=== PATIENT | male | born 1950 | race Caucasian/White ===

== ENCOUNTER 2020-02-17 09:36 | Outpatient (REF) | payer OTHER, MEDICARE, SELFPAY | END 2020-02-17 09:37 | disposition home or self-care (01) | LOC: HO.LAB 09:36 | PROVIDERS: Visit Provider Internal Medicine | DX: Z20.828 Contact with and (suspected) exposure to other viral communicable diseases (principal) | CPT/HCPCS: C9803; U0003 ==

== ENCOUNTER 2020-05-04 13:00 | Outpatient (REF) | payer MEDICARE, SELFPAY | END 2020-05-04 13:01 | disposition home or self-care (01) | LOC: HO.LAB 13:00 | PROVIDERS: Visit Provider Internal Medicine | DX: Z20.822 Contact with and (suspected) exposure to COVID-19 (principal) | CPT/HCPCS: 36415; C9803; U0003; U0005 ==

== ENCOUNTER 2020-07-09 19:23 | Emergency (ER) | payer MEDICARE, SELFPAY ==
--- NOTE | ~2020-07-09 | CT_ITS ---
EXAMINATION: CT HEAD WITHOUT CONTRAST CLINICAL INFORMATION: Fall, EtOH COMPARISON: None TECHNIQUE: Contiguous axial imaging was performed from the skull base to vertex without intravenous administration of contrast. This CT examination was performed using dose optimization techniques as appropriate, variously including the following: *Automated exposure control *Adjustment of mA and/or kV according to patient size (this includes techniques or standardized protocols for targeted exams where dose is matched to indication/reason for exam; i.e. extremities or head) *Use of iterative reconstruction technique DLP: 792 mGy-cm FINDINGS: There is no evidence of acute intracranial hemorrhage or territorial infarction. No abnormal mass effect or midline shift is seen. Silva to white matter differentiation is well preserved. No extra-axial fluid collections are identified. The ventricles are normal in size. There is no abnormal attenuation within the brain parenchyma. The osseous structures and soft tissues are normal. The mastoid air cells and visualized portions of the paranasal sinuses are well aerated. CT/CT head/brain wo con IMPRESSION: No acute intracranial pathology.
[2020-07-09 19:39] VITALS: BP 132/75; BP 171/71; PULSE 78; PULSE 83; RESP 16; O2SAT 100; O2SAT 95; BMI 30.9
--- NOTE | 2020-07-09 20:09 | ED.FALL ---
HPI - Fall General Chief Complaint: Fall Stated Complaint: fall etoh Time Seen by Provider: 07/09/20 20:08 Source: patient Mode of arrival: ambulatory Limitations: no limitations History of Present Illness HPI Narrative: Patient comes emergency room by EMS. Seems that patient was walking outside and fell into a fire back. Patient did not lose consciousness, patient has a small abrasion to the forehead. Patient admits to drink alcohol. Patient denies headache, neck pain Related Data Allergies Allergy/AdvReac Type Severity Reaction Status Date / Time Bee stings Allergy Unknown Uncoded 04/12/11 00:00 Dust Allergy Unknown Uncoded 04/12/11 00:00 Morphine Sulfate Allergy Unknown Uncoded 04/12/11 00:00 Own sweat Allergy Unknown Uncoded 04/12/11 00:00 Review of Systems Review of Systems: Constitutional : No Weight loss, No Fever, No Chills, No Night Sweats, No Fatigue, No Malaise ENT/Mouth : No Hearing loss, No Ear Pain, No Nasal Congestion, No Sinus Pain, No Hoarseness, No sore throat, No Rhinorrhea, No Swallowing Difficulty Eyes: No Eye Pain, No Swelling, No Redness, No Foreign Body, No Discharge, No Vision Changes Cardiovascular : No Chest Pain, No SOB, No Dyspnea on Exertion, No Orthopnea, No Edema, No Palpitations Respiratory : No Cough, No Sputum, No Wheezing, No Smoke Exposure, No Dyspnea Gastrointestinal : No Nausea, No Vomiting, No Diarrhea, No Constipation, No abdominal Pain, No Hematochezia, No Melena Genitourinary : no irregular bleeding, No Dysuria, No Urinary Frequency, No Hematuria, No Urinary Incontinence, No Urgency, No Flank Pain, No Urinary Flow Changes, No Hesitancy Musculoskeletal : No joint pain, No Myalgias, No Joint Swelling Skin : Skin abrasion to forehead Neuro : No Weakness, No Numbness, No Paresthesias, No Loss of Consciousness, No Dizziness, No Headache Psych : No Anxiety/Panic, No Depression, No SI/HI/AH/VH, No Social Issues, Heme/Lymph: No Bruising, No Bleeding,No Lymphadenopathy Endocrine : No Polyuria, No Polydipsia, No Temperature Intolerance PMFSH Past Medical History Medical History Alcohol abuse Social History Social History Advance Directives: No Advance Directives Information Provided: No Physical Exam Vital Signs: Vital Signs: Last Vital Signs Pulse 83 07/09/20 19:39 Resp 16 07/09/20 19:39 BP 132/75 07/09/20 19:39 Pulse Ox 95 07/09/20 19:39 Body Mass Index 30.9 Appearance: Alert. Oriented X3. Intoxicated, calm, cooperative Eyes: Pupils equal, round and reactive to light. ENT: Pharynx normal. Neck: Normal inspection. Neck supple. No lymph nodes noted. No crepitus CVS: Normal heart rate and rhythm. Pulses normal. Normal S1 and S2 Respiratory: No respiratory distress. Breath sounds normal. No Wheezing. No rales Abdomen: Soft and nontender. No rigidity. No distention. good BS x4 Skin: Skin warm and dry. Normal skin color. Normal skin turgor. Extremities: No lower extremity edema. No lower extremity edema. No Lacerations. No Rash Neuro: Oriented X 3. No motor deficit. No sensory deficit. Moving all extermities. No slurred speech. Course Course Course Narrative: Head CT within normal limits. Patient is alert, walking steadily, patient's at bedside, patient is being discharged. MDM - Fall Imaging Data Head CT: Radiologist's impression: Please follow-up with your primary care physician tomorrow. If you have any worsening or new symptoms, please return to the emergency room or call 911 Discharge Plan Discharge Clinical Impression: Alcohol abuse, Fall, Abrasion Patient Disposition: Home, Self-Care Instructions: Abuse of Alcohol (ED), Abrasion (ED) Additional Instructions: Please follow-up with your primary care physician tomorrow. If you have any worsening or new symptoms, please return to the emergency room or call 911
--- NOTE | 2020-07-09 20:52 | PC.NURSE ---
PT GETTING ANXIOUS TO LEAVE AND TRYING TO WALK OUT. AT BEDSIDE. PT ALERT AND WALKING WITH STEADY EVEN GAIT. PT AWAITING FOR PENDING CT RESULTS.
== END 2020-07-09 21:33 | disposition home or self-care (01) ==
PROVIDERS: Emergency Provider Emergency Medicine
DX: S00.81XA Abrasion of other part of head, initial encounter (principal); G44.309 Post-traumatic headache, unspecified, not intractable; F10.129 Alcohol abuse with intoxication, unspecified; Y90.8 Blood alcohol level of 240 mg/100 ml or more; W01.0XXA Fall on same level from slipping, tripping and stumbling without subsequent striking against object, initial encounter; Y93.9 Activity, unspecified; Y92.9 Unspecified place or not applicable; Y99.9 Unspecified external cause status
CPT/HCPCS: 70450; 99283

== ENCOUNTER 2020-12-11 08:16 | Emergency (ER) | payer MEDICARE, SELFPAY ==
[2020-12-11 08:18] VITALS: BP 149/80; PULSE 100; RESP 16; TEMP 36.7; O2SAT 99; BMI 24.3
--- NOTE | 2020-12-11 09:11 | ED.GENADULT ---
HPI - General Adult General Chief complaint: Skin/Abscess/Foreign Body Stated complaint: rash Time Seen by Provider: 12/11/20 09:10 Source: patient Mode of arrival: ambulatory Limitations: no limitations History of Present Illness HPI narrative: 70-year-old male is here today for complaints of rash. Patient reports that he was working in the [place] about a week ago and started having rash on his right arm spread to his chest and his bilateral lower legs. Patient was trying to use calamine lotion to dry the area, special skin wash. Patient reports that he has a history of topical dermatitis and seeing medication technician in the past for that. Patient reports that the area is it she starts with small raised red rash, no drainage no pain associated with that no tingling. Patient reports that he has not taken anything for it. Onset (ago): day(s) Location: chest, abdomen, right, upper extremity and lower extremity Radiation: non-radiation Severity: mild Related Data Previous Rx's Medication Instructions Recorded cephalexin 500 mg capsule 500 mg PO QID 5 Days #20 cap 12/11/20 diphenhydramine HCl 25 mg capsule 25 mg PO BEDTIME PRN #20 cap 12/11/20 (Benadryl) hydrocortisone 1 % topical cream 1 appl TOPICAL TID PRN #28.35 g 12/11/20 loratadine 10 mg tablet (Claritin) 10 mg PO DAILY PRN #10 tab 12/11/20 prednisone 20 mg tablet 40 mg PO DAILY 5 Days #10 tab 12/11/20 Allergies Allergy/AdvReac Type Severity Reaction Status Date / Time Bee stings Allergy Unknown Uncoded 04/12/11 00:00 Dust Allergy Unknown Uncoded 04/12/11 00:00 Morphine Sulfate Allergy Unknown Uncoded 04/12/11 00:00 Own sweat Allergy Unknown Uncoded 04/12/11 00:00 Review of Systems Review of Systems: Constitutional : No Weight loss, No Fever, No Chills, No Night Sweats, No Fatigue, No Malaise ENT/Mouth : No Hearing loss, No Ear Pain, No Nasal Congestion, No Sinus Pain, No Hoarseness, No sore throat, No Rhinorrhea, No Swallowing Difficulty Eyes: No Eye Pain, No Swelling, No Redness, No Foreign Body, No Discharge, No Vision Changes Cardiovascular : No Chest Pain, No SOB, No Dyspnea on Exertion, No Orthopnea, No Edema, No Palpitations Respiratory : No Cough, No Sputum, No Wheezing, No Smoke Exposure, No Dyspnea Gastrointestinal : No Nausea, No Vomiting, No Diarrhea, No Constipation, No abdominal Pain, No Hematochezia, No Melena Genitourinary : no irregular bleeding, No Dysuria, No Urinary Frequency, No Hematuria, No Urinary Incontinence, No Urgency, No Flank Pain, No Urinary Flow Changes, No Hesitancy Musculoskeletal : No joint pain, No Myalgias, No Joint Swelling Skin : No Skin Lesions, rash on right forearm, abdomen and legs Neuro : No Weakness, No Numbness, No Paresthesias, No Loss of Consciousness, No Dizziness, No Headache Yes all other systems are reviewed and are negative PMFSH Past Medical History Medical History Alcohol abuse Social History Social History Advance Directives: No Physical Exam Vital Signs: Vital Signs: Last Vital Signs Temp 98.0 F 12/11/20 08:18 Pulse 100 12/11/20 08:18 Resp 16 12/11/20 08:18 BP 149/80 H 12/11/20 08:18 Pulse Ox 99 12/11/20 08:18 Body Mass Index 24.3 Const: General: healthy appearing, no acute distress and well developed Nutritional Appearance: well nourished Orientation/consciousness: patient oriented x3 HENMT: Head: Yes normal to inspection, Yes normocephalic and Yes atraumatic Neck: Neck: Yes normal visual inspection, Yes full ROM and Yes trachea midline Thyroid: Thyroid normal Resp: Effort & Inspection: normal respiratory effort and able to speak in complete sentences Auscultation: clear to auscultation bilaterally Cardio: Rate: regular rate Rhythm: regular rhythm GI: Inspection: Yes normal to inspection Palpation (GI): No hepatosplenomegaly present Auscultation: normal bowel sounds Skin: Other: General skin exam: elasticity normal, turgor normal and dry skin Neuro: General: patient oriented x3 Course Course Course Narrative: Rash to right arm abdomen and bilateral lower extremities. There is no pain associated with that, most likely poison allison or poison Soma. Patient was using, might lotion, scratch the area on his right arm. Will give him prednisone for 5 days, antibiotic, Claritin and Benadryl to take home. We will also give him hydrocortisone 1% to put on that area. Patient has appointment with his medication technician in couple weeks he was encouraged to call him to be seen sooner. Discharge Plan Discharge Clinical Impression: Urticaria Contact dermatitis Qualifiers: Contact dermatitis type: allergic Contact dermatitis trigger: other trigger Qualified Code(s): L23.89 - Allergic contact dermatitis due to other agents Patient Disposition: Home, Self-Care Instructions: Contact Dermatitis (ED), Poison Allison (ED) Additional Instructions: You were seen here today for a rash that most likely was caused by poison allison. Please take prednisone for the next 5 days. You were given antibiotic please finish the treatment. You may take antihistamine like Claritin every day for the next few days. You will be given hydrocortisone to put on the rash. Please follow-up with your medication technician in 2-3 days. You may return to emergency department if you will experience worsening symptoms or any other additional concerning symptoms Prescriptions: New cephalexin 500 mg capsule 500 mg PO QID 5 Days Qty: 20 RF: 0 prednisone 20 mg tablet 40 mg PO DAILY 5 Days Qty: 10 RF: 0 loratadine [Claritin] 10 mg tablet 10 mg PO DAILY PRN (Reason: allergy symptoms) Qty: 10 RF: 0 hydrocortisone 1 % cream 1 appl topical TID PRN (Reason: itching) Qty: 28.35 RF: 0 diphenhydramine HCl [Benadryl] 25 mg capsule 25 mg PO BEDTIME PRN (Reason: allergic reaction) Qty: 20 RF: 0 Referrals: Jean Claude Natarajan, [facility] [Primary Care Provider] - 2 days Interventions: ED Discharge Assessment Last Done: 12/11/20 09:41 Discharge Date/Time: 12/11/20 09:41
[2020-12-11] MEDS: predniSONE 20 MG TABLET 40 MG PO (09:28)
[2020-12-11] MEDS: Loratadine 10 MG TABLET PO (09:28)
[2020-12-11] MEDS: cephALEXin 500 MG CAPSULE PO (09:28)
== END 2020-12-11 09:41 | disposition home or self-care (01) ==
PROVIDERS: Emergency Provider Emergency Medicine; PCP Nurse Practitioner
DX: L50.0 Allergic urticaria (principal); Z79.899 Other long term (current) drug therapy
CPT/HCPCS: 99283

== ENCOUNTER 2021-10-15 10:03 | Emergency (ER) | payer MEDICARE, SELFPAY ==
[2021-10-15 10:20] VITALS: BP 156/83; PULSE 76; RESP 16; TEMP 36.3; O2SAT 97; BMI 24.3
--- NOTE | 2021-10-15 11:16 | ED.SKABFB ---
HPI - Skin/Abscess/Foreign Bdy General Chief complaint: Skin/Abscess/Foreign Body Stated complaint: Rash Time Seen by Provider: 10/15/21 10:30 Source: patient Mode of arrival: ambulatory Limitations: no limitations History of Present Illness HPI narrative: Patient presents emergency department for evaluation of a diffuse body rash. He states 2 nights ago he was outdoors and exposed to poison oak. He has a pruritic red rash to the upper extremities, lower extremities as well as his torso. He tried calamine lotion at home which was not helping. Related Data Previous Rx's Medication Instructions Recorded cephalexin 500 mg capsule 500 mg PO QID 5 days #20 caps 12/11/20 diphenhydramine HCl 25 mg capsule 25 mg PO BEDTIME PRN allergic 12/11/20 (Benadryl) reaction #20 caps hydrocortisone 1 % topical cream 1 appl topical TID PRN itching 12/11/20 #28.35 grams loratadine 10 mg tablet (Claritin) 10 mg PO DAILY PRN allergy 12/11/20 symptoms #10 tabs prednisone 20 mg tablet 40 mg PO DAILY 5 days #10 tabs 12/11/20 hydrocortisone 2.5 % topical cream 1 appl topical BID PRN itching #20 10/15/21 grams prednisone 20 mg tablet See Rx Instructions .Route 10/15/21 .COMPLEX #15 tabs Allergies Allergy/AdvReac Type Severity Reaction Status Date / Time Bee stings Allergy Unknown Uncoded 04/12/11 00:00 Dust Allergy Unknown Uncoded 04/12/11 00:00 Morphine Sulfate Allergy Unknown Uncoded 04/12/11 00:00 Own sweat Allergy Unknown Uncoded 04/12/11 00:00 Review of Systems Review of Systems: Skin: Positive rash Yes all other systems are reviewed and are negative [facility] Past Medical History Attestation statement: The following information was validated with the patient. Source: old records reviewed Medical History Alcohol abuse Social History Social History Advance Directives: No Advance Directives Information Provided: No Physical Exam Vital Signs: Vital Signs: Last Vital Signs Temp 97.4 F 10/15/21 10:20 Pulse 76 10/15/21 10:20 Resp 16 10/15/21 10:20 BP 156/83 H 10/15/21 10:20 Pulse Ox 97 10/15/21 10:20 O2 Del Method 10/15/21 10:20 BMI result Body Mass Index 24.3 Appearance: Alert.?Oriented to person, place and time. No acute distress.?Normal affect. Eyes: Pupils equal, round and reactive to light.? ENT: Pharynx normal.?? Neck: Normal inspection.? Neck supple.?? CVS: Heart sounds normal. Normal heart rate and rhythm.? Pulses normal.?? Respiratory: No respiratory distress.? Lung sounds clear to auscultation bilaterally?? Abdomen: Soft and non-tender. Normoactive bowel sounds. ?? Skin: Skin warm and dry.? Normal skin color.? Positive diffuse erythematous maculopapular rash to all 4 extremities and torso with linear excoriations Extremities: No lower extremity edema.? Neuro: Moves all extremities spontaneously. Sensation intact bilaterally. No motor deficits Ambulates with normal steady gait. Course Course Course Narrative: Patient is a 70-year-old male who presents emergency department for evaluation of a rash x2 days after exposure to poison oak by his report. Unresponsive to calamine lotion at home. Physical exam consistent with a contact dermatitis secondary to most likely plant exposure. Discussed home remedies for treatment, application of hydrocortisone cream to areas of particular itchiness if needed, prednisone taper was prescribed, advised Benadryl to be used at night for sleep, we did discuss that this will not help this particular reaction but may provide him sleep aid if the itching is keeping him awake. Reviewed worrisome signs and symptoms return back to emergency department for. Outpatient follow-up with his primary care provider. Patient was discharged home in stable condition. MDM - Skin/Abscess/Foreign Bdy Medical Records Attestation: I reviewed the patient's medical records. Discharge Plan Discharge Clinical Impression: Contact dermatitis Patient Disposition: Home, Self-Care Instructions: Contact Dermatitis (ED) Additional Instructions: Was discussed the rash seems consistent with a reaction to the poison oak you were exposed to. Oral allergy medications are not typically helpful for this type of reaction, however if you are having difficulty sleeping at night due to the itching, you may benefit from using [id number] Benadryl as needed at bedtime. You may trial oatmeal baths, cool wet compresses, and avoid scratching the areas. Other topical treatments such as calamine lotion or burrows solution may provide some relief. Hydrocortisone cream may be apply to areas that are particularly if she, however given the widespread reaction, given given a prescription for oral steroids, prednisone to take daily. Please follow-up with your primary care provider as needed Prescriptions: New prednisone 20 mg tablet See Rx Instructions .ROUTE .COMPLEX Qty: 15 0RF Rx Instructions: Take two 20mg tablets daily, total 40 mg for 5 days. Then take one 20 mg tablet daily for next 5 days hydrocortisone 2.5 % cream 1 appl topical BID PRN (Reason: itching) Qty: 20 0RF No Action cephalexin 500 mg capsule 500 mg PO QID 5 Days Qty: 20 0RF prednisone 20 mg tablet 40 mg PO DAILY 5 Days Qty: 10 0RF loratadine [Claritin] 10 mg tablet 10 mg PO DAILY PRN (Reason: allergy symptoms) Qty: 10 0RF hydrocortisone 1 % cream 1 appl topical TID PRN (Reason: itching) Qty: 28.35 0RF diphenhydramine HCl [Benadryl] 25 mg capsule 25 mg PO BEDTIME PRN (Reason: allergic reaction) Qty: 20 0RF Interventions: ED Discharge Assessment Last Done: 10/15/21 11:45 Discharge Date/Time: 10/15/21 11:46
== END 2021-10-15 11:46 | disposition home or self-care (01) ==
PROVIDERS: Emergency Provider Emergency Medicine; PCP Nurse Practitioner
DX: L25.9 Unspecified contact dermatitis, unspecified cause (principal); R21 Rash and other nonspecific skin eruption
CPT/HCPCS: 99283

== ENCOUNTER 2022-05-14 09:35 | Emergency (ER) | payer MEDICARE, SELFPAY ==
--- NOTE | ~2022-05-14 | XR_ITS ---
EXAMINATION: XR HAND, LEFT CLINICAL INFORMATION: Status post fall with left hand pain and laceration. COMPARISON: None available. TECHNIQUE: PA, lateral, and oblique views of the left hand. FINDINGS: There is mild loss of PIP and DIP joint spaces with mild periarticular spurring second or third and fifth DIP joints. No acute fracture or dislocation seen. No soft tissue laceration or swelling seen. XR/XR hand LT min 3V IMPRESSION: Mild degenerative changes PIP and DIP joints. No visible acute fracture, dislocation or soft tissue laceration seen.
[2022-05-14 09:46] VITALS: BP 145/91; PULSE 79; RESP 18; TEMP 36.6; O2SAT 97; BMI 24.3
[2022-05-14] MEDS: Lidocaine HCl 1 % MPF 5 ML VIAL SUBCUT (11:05)
[2022-05-14] MEDS: Diphth,Pertus(ACell),Tet Adult 0.5 ML SYRINGE IM (11:33)
--- NOTE | 2022-05-14 12:11 | ED.WOUNDLAC ---
HPI - Wound/Laceration General Chief Complaint: Wound/Laceration Stated Complaint: Hand lac Time Seen by Provider: 05/14/22 10:41 Source: patient Mode of arrival: ambulatory Limitations: no limitations History of Present Illness HPI narrative: 71yoM presenting to the ER with complaints of a laceration to his left hand palmar aspect that occurred last night while he was in his house he tripped and fell lacerating his hand. Denies head injury loss of consciousness or prolonged down time or any symptoms prior to the fall. Reports that he thought that it would stop bleeding with a Band-Aid although his made him come here today to get stitches due to the laceration continued to bleed intermittently. Otherwise he denies any other symptoms complaints concerns or injuries at this time. Onset (ago): day(s) (Last night around 23:00) Extremity Location: left: hand Place: home Patient tetanus UTD: No Context: accidental Associated symptoms: none Treatments prior to arrival: bandage Related Data Previous Rx's Medication Instructions Recorded cephalexin 500 mg capsule 500 mg PO QID 5 days #20 caps 12/11/20 diphenhydramine HCl 25 mg capsule 25 mg PO BEDTIME PRN allergic 12/11/20 (Benadryl) reaction #20 caps hydrocortisone 1 % topical cream 1 appl topical TID PRN itching 12/11/20 #28.35 grams loratadine 10 mg tablet (Claritin) 10 mg PO DAILY PRN allergy 12/11/20 symptoms #10 tabs prednisone 20 mg tablet 40 mg PO DAILY 5 days #10 tabs 12/11/20 hydrocortisone 2.5 % topical cream 1 appl topical BID PRN itching #20 10/15/21 grams prednisone 20 mg tablet See Rx Instructions .Route 10/15/21 .COMPLEX #15 tabs Allergies Allergy/AdvReac Type Severity Reaction Status Date / Time Bee stings Allergy Unknown Unknown Uncoded 05/14/22 09:46 Dust Allergy Unknown Unknown Uncoded 05/14/22 09:46 Morphine Sulfate Allergy Unknown Unknown Uncoded 05/14/22 09:46 Own sweat Allergy Unknown Unknown Uncoded 05/14/22 09:46 Review of Systems Review of Systems: Constitutional : No Fever, No Chills, Cardiovascular : No Chest Pain, No SOB Respiratory : No Dyspnea Gastrointestinal : No abdominal pain Musculoskeletal : No Joint Swelling Skin : positive skin laceration, No Foreign bodies, No rash, No surrounding erythema Neuro : No Weakness, No Numbness/tingling Psych : No SI/HI/thoughts of self injury Yes all other systems are reviewed and are negative [facility] Past Medical History Attestation statement: The following information was validated with the patient. Source: old records reviewed and nursing notes reviewed Medical History Alcohol abuse Social History Social History Advance Directives: No Advance Directives Information Provided: No Physical Exam Vital Signs: Vital Signs: Last Vital Signs Temp 98 F 05/14/22 09:46 Pulse 79 05/14/22 09:46 Resp 18 05/14/22 09:46 BP 145/91 H 05/14/22 09:46 Pulse Ox 97 05/14/22 09:46 O2 Del Method Room Air 05/14/22 09:46 BMI result Body Mass Index 24.3 vital signs have been reviewed as normal and appeared to be correct. Blood pressure normal. Heart rate normal. Respiration rate normal. Temperature normal. Oxygen saturation normal. Appearance: Alert. Oriented X3. No acute distress. Head: Normal external exam. Normocephalic. Atraumatic. No Pickering signs noted. No raccoon eyes noted Eyes: PERRLA. EOMI. Conjunctiva and sclera normal. Eyelids normal. ENT: EAC normal. TM's Normal. No septal hematoma noted. No hemotympanum noted. Pharynx normal. Uvula midline. Moist mucous membranes. No lesions/ulcerations or masses noted on the tongue. Normal voice. No trismus noted. No drooling noted. No muffled voice noted. Neck: Normal inspection. Neck supple. FROM. No adenopathy. Thyroid Normal. No tracheal deviation noted. No crepitus is noted. No meningeal signs. No neck mass noted. No signs of trauma noted. CVS: Normal heart rate and rhythm. Heart sound normal. Pulses normal throughout. No murmurs/rales/gallops. Respiratory: No respiratory distress. Painless inspiration. Breath sounds normal. No wheezes/rales/rhonchi noted. Chest nontender. No crepitus is noted. No accessory muscle usage noted or decreased air movement noted. No signs of trauma. Abdomen: Soft and nontender. Nondistended. No guarding. No rigidity. Bowel sounds normal in all 4 quadrants. No distention noted. No organomegaly noted. No visible injury noted. No rebound tenderness. Negative Rovsing sign. Negative obturator's sign. Negative psoas sign. Negative Snyder sign. Back: No CVA tenderness. Full range of motion noted. Nontender. No signs of trauma. Patient neuro intact bilaterally and distally on all 4 extremities. Patient's reflexes intact bilaterally and distally on all 4 extremities. No rashes/lesion/induration/fluctuance or signs of infection noted. Skin: Skin warm and dry. Normal skin color. Normal skin turgor. Flap superficial 2 cm laceration triangular in shape to left hand palmar aspect. No active bleeding or foreign bodies noted. No additional rashes/lesions/lacerations noted. Extremities: Patient does not have any bony tenderness to the left hand/wrist/finger joints. There is also no obvious ligamentous or tendon injury noted to the left hand. Otherwise all other Extremities exhibit normal range of motion and nontender. Neuro: Oriented X 3. No motor deficit. No sensory deficit. Reflexes normal. Normal steady gait. No focal neuro deficits noted. CN's II-XII intact bilaterally? Vascular: + radial pulses/+ 2 distal pedal pulses/+2 dorsalis pedis b/l. Normal cap refill. No cyanosis noted to upper extremity nails and lower extremity toes nails. Course Course Course Narrative: Patient now status post laceration repair with 7 interrupted stitch. Tetanus updated. X-ray of left hand obtained and negative for any acute processes only chronic changes. Will DC home with symptomatic treatment antibiotics along with instructions to return in 10-14 days for suture removal and to follow up prior if signs of infection. Patient understands agrees the plan. Medications Administered Discontinued Medications Generic Name Dose Route Start Last Admin Trade Name Freq PRN Reason Stop Dose Admin Diphtheria/Tetanus/Acell Pertussis 0.5 ml 05/14/22 11:07 05/14/22 11:33 Diphth,Pertus(Acell),Tet Adult 0.5 Ml Syringe IM 05/14/22 11:08 0.5 ml .ONCE ONE Administration Lidocaine HCl 5 ml 05/14/22 10:55 05/14/22 11:05 Lidocaine Hcl 1 % Mpf 5 Ml Vial SUBCUT 05/14/22 10:56 5 ml ONCE ONE Administration Medical Decision Making Independent Interpretation I performed an independent interpretation of an: Plain X-Ray (Left hand x-ray reviewed by myself agreeable radiologist report) Radiology Impression Discussion of test interpretation with radiology: I have reviewed the radiologist's reading. Radiologist Impression: FINDINGS: There is mild loss of PIP and DIP joint spaces with mild periarticular spurring second or third and fifth DIP joints. No acute fracture or dislocation seen. No soft tissue laceration or swelling seen.? XR/XR hand LT min 3V IMPRESSION: Mild degenerative changes PIP and DIP joints. No visible acute fracture, dislocation or soft tissue laceration seen. Procedures Laceration Laceration 1: Site: hand Side (If applicable): left Size (cm): 2 Description: flap (Triangular shaped) Depth: simple, single layer Local Anesthetic: lidocaine 1% Amount of anesthesia used (mL): 5 Pre-repair: wound explored, irrigated extensively and deep structures intact Skin layer closed with: nylon Size (cm): 4-0 Number of sutures: 7 Technique: simple, interrupted Discharge Plan Discharge Clinical Impression: Hand laceration, Fall Patient Disposition: Home, Self-Care Instructions: Laceration (ED) Prescriptions: No Action cephalexin 500 mg capsule 500 mg PO QID 5 Days Qty: 20 0RF prednisone 20 mg tablet 40 mg PO DAILY 5 Days Qty: 10 0RF loratadine [Claritin] 10 mg tablet 10 mg PO DAILY PRN (Reason: allergy symptoms) Qty: 10 0RF hydrocortisone 1 % cream 1 appl topical TID PRN (Reason: itching) Qty: 28.35 0RF diphenhydramine HCl [Benadryl] 25 mg capsule 25 mg PO BEDTIME PRN (Reason: allergic reaction) Qty: 20 0RF prednisone 20 mg tablet See Rx Instructions .ROUTE .COMPLEX Qty: 15 0RF Rx Instructions: Take two 20mg tablets daily, total 40 mg for 5 days. Then take one 20 mg tablet daily for next 5 days hydrocortisone 2.5 % cream 1 appl topical BID PRN (Reason: itching) Qty: 20 0RF Referrals: Jean Claude Natarajan NP [Primary Care Provider] - 2 days Karuna Campos PA [Emergency Midlevel Provider] - 10 days (FOR SUTURE REMOVAL)
== END 2022-05-14 12:29 | disposition home or self-care (01) ==
PROVIDERS: Emergency Provider Emergency Medicine; PCP Nurse Practitioner
DX: S61.412A Laceration without foreign body of left hand, initial encounter (principal); S60.512A Abrasion of left hand, initial encounter; M79.642 Pain in left hand; W01.0XXA Fall on same level from slipping, tripping and stumbling without subsequent striking against object, initial encounter; Y93.9 Activity, unspecified; Y92.9 Unspecified place or not applicable; Y99.9 Unspecified external cause status; Z79.899 Other long term (current) drug therapy; Z23 Encounter for immunization
CPT/HCPCS: 12041; 73130; 90471; 90715; 99282; 99284

== ENCOUNTER 2022-05-24 09:38 | Emergency (ER) | payer MEDICARE, SELFPAY ==
[2022-05-24 09:57] VITALS: BP 151/85; PULSE 87; RESP 18; TEMP 36.5; O2SAT 98; BMI 28.2
--- NOTE | 2022-05-24 10:17 | ED_ITS ---
HPI - General Adult General Chief complaint: General Medical Stated complaint: stiches removal Time Seen by Provider: 05/24/22 10:17 Source: patient Mode of arrival: ambulatory Limitations: no limitations History of Present Illness HPI narrative: Patient is a 71 year old assigned male at with a history of alcohol abuse and atopic dermatitis presenting to the emergency department today for suture removal. Patient had 7 stitches placed on 05/14/22 on his left palm after a fall resulted in a laceration. Patient denies any symptoms of infection including fever, chills, night sweats, or any other complaints at this time. complaint: suture removal Onset (ago): day(s) (10) Location: left (palm) Severity: mild Severity scale (1-10): 1 Relieving factors: none Exacerbating factors: none Associated symptoms: denies other symptoms Treatments prior to arrival: none Related Data Previous Rx's Medication Instructions Recorded cephalexin 500 mg capsule 500 mg PO QID 5 days #20 caps 12/11/20 diphenhydramine HCl 25 mg capsule 25 mg PO BEDTIME PRN allergic 12/11/20 (Benadryl) reaction #20 caps hydrocortisone 1 % topical cream 1 appl topical TID PRN itching 12/11/20 #28.35 grams loratadine 10 mg tablet (Claritin) 10 mg PO DAILY PRN allergy 12/11/20 symptoms #10 tabs prednisone 20 mg tablet 40 mg PO DAILY 5 days #10 tabs 12/11/20 hydrocortisone 2.5 % topical cream 1 appl topical BID PRN itching #20 10/15/21 grams prednisone 20 mg tablet See Rx Instructions .Route 10/15/21 .COMPLEX #15 tabs Allergies Allergy/AdvReac Type Severity Reaction Status Date / Time Bee stings Allergy Unknown Unknown Uncoded 05/14/22 09:46 Dust Allergy Unknown Unknown Uncoded 05/14/22 09:46 Morphine Sulfate Allergy Unknown Unknown Uncoded 05/14/22 09:46 Own sweat Allergy Unknown Unknown Uncoded 05/14/22 09:46 Review of Systems Review of Systems: Yes all other systems are reviewed and are negative Constitutional: Constitutional: Reports no additional constitutional complaints, Denies chills, Denies fever(s) and Denies night sweats Eyes: Eyes: Reports no additional eye complaints, Denies blurry vision, Denies change in vision, Denies diplopia, Denies eye discharge, Denies loss of vision and Denies eye pain ENT: Denies dizziness Cardiovascular: Cardiovascular: Reports no additional cardiovascular complaints, Denies chest pain, Denies lightheadedness, Denies Loss of Consciousness and Denies dyspnea Respiratory: Respiratory: Reports no additional respiratory complaints and Denies dyspnea Gastrointestinal: Gastrointestinal: Reports no additional gastrointestinal complaints, Denies abdominal pain, Denies melena, Denies hematochezia, Denies change in bowel habits and Denies change in stool character Genitourinary: Genitourinary: Reports no additional male genitourinary complaints, Denies hematuria, Denies oliguria, Denies difficulty urinating, Denies dysuria, Denies urinary frequency, Denies urinary hesitancy, Denies urinary incontinence and Denies urinary urgency Musculoskeletal: Musculoskeletal: Reports no additional musculoskeletal complaints, Denies numbness and Denies tingling Comments: 7 sutures in left pallm Neurologic: Denies dizziness, Denies loss of vision, Denies numbness and Denies tingling Psychiatric: Psychiatric: Reports no additional psychiatric complaints Endocrine: Endocrine: Reports no additional endocrine complaints Hematologic/Lymphatic: Hematologic/Lymphatic: Reports no additional hematologic/lymphatic complaints Allergic/Immunologic: Allergic/Immunologic: Reports no additional allergic/immunologic complaints PMFSH Past Medical History Attestation statement: The following information was validated with the patient. Source: old records reviewed and nursing notes reviewed Medical History Alcohol abuse Social History Social History Advance Directives: Yes Advance Directives Information Provided: No Advance Directives on File: No Physical Exam ED Vital Signs: Vital Signs - 24 hr 05/24/22 09:57 Temperature 97.7 F Pulse Rate 87 Respiratory Rate 18 Blood Pressure 151/85 H Pulse Oximetry 98 Oxygen Delivery Method Room Air BMI result Body Mass Index 28.2 Const General: cooperative, no acute distress, alert and awake Nutritional Appearance: well nourished Orientation/consciousness: patient oriented x3 Limitations: no limitations HENMT Head: Yes normal to inspection and Yes atraumatic Ears: hearing grossly normal bilaterally and external ears normal General nose exam: Normal external nose present, no nasal discharge noted and no epistaxis Face and sinus: Yes normal facial exam, No abrasion and No laceration Mouth: Normal oral and palatal mucosa present, no drooling and no muffled voice Eyes General: appearance normal, both eyes and all related structures Periorbital: periorbital findings normal Eyelids: Yes eyelids normal Conjunctivae: conjunctivae normal Pupils: Equal, round and reactive pupils present EOM: EOMs intact bilaterally Neck Neck: Yes normal visual inspection, Yes full ROM and Yes no lymphadenopathy Chest Chest palpation & inspection: normal inspection of the chest Resp Effort & Inspection: normal respiratory effort and able to speak in complete sentences GI Inspection: Yes normal to inspection Neuro General: patient oriented x3 and moves all extremities Cranial nerves: Yes Equal, round and reactive pupils present Cognition (Neuro): normal cognition Motor exam (neuro): 5/5 motor strength present throughout Sensory Exam: Normal double simultaneous stimulation for sensation Coordination: [id number] test normal Extrem Other: 7 sutures noted on the left palmar aspect of the hand surrounded by moist, shiny, macerated skin approximately 2cm in diameter. No surrounding erythema, edema, or exudate. General: Yes normal to inspection, Yes full ROM and Yes capillary refill normal Psych Appearance: grossly normal Mental Status: mental status grossly normal Affect: normal affect Attitude: cooperative Thought process: Normal thought process present Thought content: Normal thought content present Insight: Good insight present (Psych) Procedures Procedure Narrative Procedure Narrative: Performed by: RADHA Parra Authorized by: Randi Colon PA-C Consent: Verbal consent obtained. Risks and benefits: risks, benefits and alternatives were discussed Consent given by: patient Patient understanding: patient states understanding of the procedure being performed Patient consent: the patient's understanding of the procedure matches consent given Patient identity confirmed: verbally with patient and arm band Body area: Left palmar aspect Wound Appearance: clean Post-removal: non-adherent dressing applied Patient tolerance: Patient tolerated the procedure well with no immediate co mplications. Medical Decision Making Medical Decision Making MDM Narrative: Patient is a 71 year old assigned male at with a history of alcohol abuse and atopic dermatitis presenting to the emergency department today for suture removal. Patient's physical exam showed 7 sutures in the left palm with a well healing wound and macerated surrounding skin. When asked about the surrounding skin, the patient explained that he has Eczema and that's usually how his wounds heal. I explained my physical exam findings to the patient. I answered all questions asked by the patient. Patient's sutures were removed with no complications. I stressed the importance of the patient keeping his wound site clean. I stressed the importance of the patient following up with his primary care provider. I stressed the importance of the patient returning to the emergency department immediately if he develops any signs of infection including increased erythema or edema, presence of exudate, failure of healing, fever, or chills. Patient verbalized agreement and understanding with this treatment plan and discharge. Differential Diagnosis Differential Diagnoses: The differential diagnosis associated with the presentation includes suture removal Discharge Plan Discharge Clinical Impression: Encounter for removal of sutures Patient Disposition: Home, Self-Care Instructions: Stitches Removal (ED) Additional Instructions: Follow up with your primary care provider. Return to the emergency department immediately if your symptoms worsen or if you develop any dizziness, shortness of breath, difficulty breathing, chest pain, blurry vision, loss of vision, nausea, vomiting, abdominal pain, fever, chills, back pain, or any other compla ints. Prescriptions: No Action cephalexin 500 mg capsule 500 mg PO QID 5 Days Qty: 20 0RF prednisone 20 mg tablet 40 mg PO DAILY 5 Days Qty: 10 0RF loratadine [Claritin] 10 mg tablet 10 mg PO DAILY PRN (Reason: allergy symptoms) Qty: 10 0RF hydrocortisone 1 % cream 1 appl topical TID PRN (Reason: itching) Qty: 28.35 0RF diphenhydramine HCl [Benadryl] 25 mg capsule 25 mg PO BEDTIME PRN (Reason: allergic reaction) Qty: 20 0RF prednisone 20 mg tablet See Rx Instructions .ROUTE .COMPLEX Qty: 15 0RF Rx Instructions: Take two 20mg tablets daily, total 40 mg for 5 days. Then take one 20 mg tablet daily for next 5 days hydrocortisone 2.5 % cream 1 appl topical BID PRN (Reason: itching) Qty: 20 0RF Referrals: [facility] Family Medicine [Provider Group] (Call to establish and follow up with a primary care provider. If you already have a primary care provider, please follow up with them.) [facility] [Provider Group] (Call to establish and follow up with a primary care provider. If you already have a primary care provider, please follow up with them.) [facility] [Provider Group] (Call to establish and follow up with a primary care provider. If you already have a primary care provider, please follow up with them.) Interventions: ED Discharge Assessment Last Done: 05/24/22 11:00 Discharge Date/Time: 05/24/22 11:02 Print Language: Algerian
== END 2022-05-24 11:02 | disposition home or self-care (01) ==
PROVIDERS: Emergency Provider Emergency Medicine Emergency Medical Services
DX: Z48.02 Encounter for removal of sutures (principal); S61.412D Laceration without foreign body of left hand, subsequent encounter; W19.XXXD Unspecified fall, subsequent encounter
CPT/HCPCS: 99283

== ENCOUNTER 2022-07-05 05:34 | Emergency (ER) | payer MEDICARE, SELFPAY ==
[2022-07-05 06:08] VITALS: BP 128/68; PULSE 76; RESP 17; TEMP 36.7; O2SAT 96; BMI 24.4
--- NOTE | 2022-07-05 07:05 | ED_ITS ---
HPI - Skin/Abscess/Foreign Bdy General Chief complaint: Skin/Abscess/Foreign Body Stated complaint: skin/abscess, possible rash? Time Seen by Provider: 07/05/22 07:05 Source: patient Mode of arrival: ambulatory History of Present Illness HPI narrative: 71-year-old male presents with past medical history of atopic dermatitis that he has been on medication for since he was a teenager and presents with bilateral forearm rash that started on Sunday and has progressively worsened over the past couple of days and now extends to his entire thorax and without complaints of shortness of breath, difficulty breathing or swallowing or facial swelling. Patient denies any recent new medications or change in medications in states that this rash is not consistent with his atopic dermatitis. He denies any recent exposure to poison oak/Allison/sumac. Related Data Previous Rx's Medication Instructions Recorded cephalexin 500 mg capsule 500 mg PO QID 5 days #20 caps 12/11/20 diphenhydramine HCl 25 mg capsule 25 mg PO BEDTIME PRN allergic 12/11/20 (Benadryl) reaction #20 caps hydrocortisone 1 % topical cream 1 appl topical TID PRN itching 12/11/20 #28.35 grams loratadine 10 mg tablet (Claritin) 10 mg PO DAILY PRN allergy 12/11/20 symptoms #10 tabs prednisone 20 mg tablet 40 mg PO DAILY 5 days #10 tabs 12/11/20 hydrocortisone 2.5 % topical cream 1 appl topical BID PRN itching #20 10/15/21 grams prednisone 20 mg tablet See Rx Instructions .Route 10/15/21 .COMPLEX #15 tabs prednisone 50 mg tablet 50 mg PO DAILY 4 days #4 tabs 07/05/22 Allergies Allergy/AdvReac Type Severity Reaction Status Date / Time Bee stings Allergy Unknown Unknown Uncoded 05/14/22 09:46 Dust Allergy Unknown Unknown Uncoded 05/14/22 09:46 Morphine Sulfate Allergy Unknown Unknown Uncoded 05/14/22 09:46 Own sweat Allergy Unknown Unknown Uncoded 05/14/22 09:46 Review of Systems Review of Systems: Pertinent positives and negatives as stated in HPI [facility] Past Medical History Source: nursing notes reviewed Medical History Alcohol abuse Social History Social History Advance Directives: No Advance Directives Information Provided: No Physical Exam Vital Signs: Vital Signs: Last Vital Signs Temp 98.0 F 07/05/22 06:08 Pulse 76 07/05/22 06:08 Resp 17 07/05/22 06:08 BP 128/68 07/05/22 06:08 Pulse Ox 96 07/05/22 06:08 O2 Del Method Room Air 07/05/22 06:08 BMI result Body Mass Index 24.4 VITAL SIGNS: Reviewed. GENERAL: Well developed, well nourished, in no acute distress. HEAD: Normocephalic/atraumatic, EYES: PERRLA, EOMI intact without pain, no nystagmus/pallor/icterus noted EARS: Ext canals without abnormality, TMs non-bulging and non-erythematous NOSE: Nares patent bilateral OROPHARYNX: no oral lesions noted, posterior pharynx clear, no facial/lips/ tongue swelling NECK: Supple, no adenopathy LUNGS: No stridor, Normal breath sounds. No adventitious sounds or accessory muscle use. SpO2<96> CARDIOVASCULAR: Regular rate and rhythm without noted murmurs ABDOMEN: Soft, non-tender, non-distended with bowel sounds. MUSCULOSKELETAL: No tenderness, deformities, or effusions noted on gross inspection. EXTREMITIES: No cyanosis, clubbing or edema. SKIN: Inspection of the skin reveals raised papular rash to bilateral arms with extension up into the neck and scattered across the back NEUROLOGIC: Alert and oriented x 4. Strength and sensation to light touch were grossly intact x 4. Medications Administered Discontinued Medications Generic Name Dose Route Start Last Admin Trade Name Freq PRN Reason Stop Dose Admin Diphenhydramine HCl 50 mg 07/05/22 07:15 07/05/22 07:24 Diphenhydramine Hcl 25 Mg Capsule PO 07/05/22 07:16 50 mg ONCE ONE Administration Methylprednisolone Sodium Succinate 80 mg 07/05/22 08:35 07/05/22 09:09 Methylprednisolone Sod Succ 125 Mg/2 Ml Vial IVPUSH 07/05/22 08:36 80 mg ONCE ONE Administration Prednisone 50 mg 07/05/22 07:15 07/05/22 07:24 Prednisone 10 Mg Tablet PO 07/05/22 07:16 50 mg ONCE ONE Administration Medical Decision Making Medical Decision Making MDM Narrative: 71-year-old male with history and clinical presentation of rash that most consistently appears to be associated with a contact dermatitis/poison allison exposure. There is no evidence of anaphylaxis or angioedema the distribution is associated with clothing coverage. Will give Benadryl and prednisone and reassess. On reassessment patient notes some additional sites on the left lateral chest wall, still asymptomatic for symptoms or evidence of anaphylaxis or angioedema, will receive IV with 80 mg of Solu-Medrol. On re-evaluation patient is feeling better and was discharged in stable condition. He will be presumptively treated for contact dermatitis secondary to poison allison. On re-evaluation at 09:42 patient is feeling much better, the rash is noted to have decreased and patient was resting comfortably. He is otherwise discharged home in stable condition with a remaining 4 day course of prednisone and instructions regarding Benadryl as well as [id number] poison allison topical treatment. Differential Diagnosis Please see the discussion above Discharge Plan Discharge Clinical Impression: Contact dermatitis due to poison allison Patient Disposition: Home, Self-Care Instructions: Contact Dermatitis (ED), Poison Allison (ED) Additional Instructions: 1. Continue with a short course of steroids. 2. Continue with regular use of Benadryl throughout the day as directed on the outside of the bottle. 3. Follow-up with your primary care provider. Return to the ER for any worsening symptoms Prescriptions: New prednisone 50 mg tablet 50 mg PO DAILY 4 Days Qty: 4 0RF No Action cephalexin 500 mg capsule 500 mg PO QID 5 Days Qty: 20 0RF prednisone 20 mg tablet 40 mg PO DAILY 5 Days Qty: 10 0RF loratadine [Claritin] 10 mg tablet 10 mg PO DAILY PRN (Reason: allergy symptoms) Qty: 10 0RF hydrocortisone 1 % cream 1 appl topical TID PRN (Reason: itching) Qty: 28.35 0RF diphenhydramine HCl [Benadryl] 25 mg capsule 25 mg PO BEDTIME PRN (Reason: allergic reaction) Qty: 20 0RF prednisone 20 mg tablet See Rx Instructions .ROUTE .COMPLEX Qty: 15 0RF Rx Instructions: Take two 20mg tablets daily, total 40 mg for 5 days. Then take one 20 mg tablet daily for next 5 days hydrocortisone 2.5 % cream 1 appl topical BID PRN (Reason: itching) Qty: 20 0RF Referrals: Christiano Niño MD [Primary Care Provider] -
[2022-07-05] MEDS: predniSONE 10 MG TABLET 50 MG PO (07:24)
[2022-07-05] MEDS: diphenhydrAMINE HCL 25 MG CAPSULE 50 MG PO (07:24)
[2022-07-05] MEDS: methylPREDNISolone Sod Succ 125 MG/2 ML VIAL 80 MG IVPUSH (09:09)
== END 2022-07-05 10:09 | disposition home or self-care (01) ==
PROVIDERS: Emergency Provider Student in an Organized Health Care Education/Training Program; PCP Internal Medicine
DX: L23.7 Allergic contact dermatitis due to plants, except food (principal); Z79.899 Other long term (current) drug therapy
CPT/HCPCS: 96374; 99282; 99284; J2930